=== PATIENT | male | born 1975 | race Caucasian/White ===

== ENCOUNTER 2022-09-16 13:24 | Outpatient (CLI) | payer OTHER, SELFPAY ==
--- NOTE | ~2022-09-16 | PE_ITS ---
EXAMINATION: PET_PETPSMAST_PT DATE: 09/16/2022 15:57 INDICATION: Malignant neoplasm of prostate. TECHNIQUE: 10.294 mCi of piflufolastat F-18 was administered intravenously. Low dose computed tomogra phy (CT) images were acquired from the base of the brain to the proximal thighs for attenuation corre ction and anatomic localization. Automated exposure control was employed. Dose-length product (DLP) w as 858 mGy-cm. Positron emission tomography (PET) images were acquired in the same distribution. COMPARISON: None FINDINGS: Head/neck: There are no pathologically enlarged lymph nodes. Chest: There is no pneumonia or pleural effusion. The heart size is normal. There are coronary artery calcifications. No pericardial effusion. There are no pathologically enlarged lymph nodes. Abdomen/pelvis/proximal thighs: There is diffuse hepatic steatosis. There is a 2.9 cm mass in left he patic lobe that is hyperdense to the steatotic liver with activity equal to normal liver, likely foca l fat sparing. There is mild splenomegaly. The pancreas and adrenal glands are normal. There is a 1 m m stone in right kidney. There is a 3 mm stone in left kidney. There are bilateral inguinal hernias containing fat. There are no dilated loops of bowel. The appendix is normal. There are no pathologica lly enlarged lymph nodes. There are normal-sized bilateral internal iliac nodes with increased activi ty. For example, an 8 x 5 mm right internal iliac node demonstrates maximum SUV of 17.8. There is no free intraperitoneal fluid. The prostate is mildly enlarged. There is increased activity in the prost ate predominantly involving the peripheral zone with maximum SUV of 31.8. There is no osseous metasta tic disease. IMPRESSION: 1. Mildly enlarged prostate with increased activity, consistent with primary malignancy. 2. Normal sized bilateral internal iliac lymph nodes with increased activity, consistent with metasta tic disease. Reviewed, dictated and finalized at location A. IMPRESSION: 1. Mildly enlarged prostate with increased activity, consistent with primary ma lignancy. 2. Normal sized bilateral internal iliac lymph nodes with increased activity, c onsistent with metastatic disease.
== END 2022-09-16 13:25 | disposition home or self-care (01) ==
PROVIDERS: Visit Provider Urology
DX: C61 Malignant neoplasm of prostate (principal)
CPT/HCPCS: 78815; A9595

== ENCOUNTER 2023-05-19 13:19 | Outpatient (CLI) | payer OTHER, SELFPAY ==
--- NOTE | ~2023-05-19 | DEXA_ITS ---
Bone Density Report Name: HAY WELCH Age: 47 Sex: Male Ethnicity: White Date of : 1975 Indication: height loss; cancer; Referring Provider: NICOLAS JESUS Study: Bone densitometry was performed. Exam Date: May 19, 2023 Accession number: [id number] Bone Density: Region BMD T-score Z-score Classification AP Spine(L1-L4) 1.029 -0.6 -0.2 Normal Femoral Neck (Left) 0.781 -1.1 -0.4 Osteopenia Total Hip (Left) 1.078 0.3 0.6 Normal Femoral Neck (Right) 0.798 -1.0 -0.2 Normal Total Hip (Right) 1.026 0.0 0.3 Normal Total Hip Mean 1.052 0.2 0.5 Normal World Health Organization criteria for BMD impression classify patients as: Normal (T-score at or above -1.0), Osteopenia (T-score between -1.0 and -2.5), or Osteoporosis (T-score at or below -2.5). 10-year Fracture Risk: FRAX not reported because: Man under age 50 Clinical Information Provided by Patient: Has used the following medications: Vitamin D Has the following medical conditions: Cancer Patient maximum height was 69 No regular weight bearing exercise Drinks caffeinated beverages Impression: The patient's bone mass is within expected range for age, gender and ethnicity. Discussion: BONE DENSITY IS WITHIN EXPECTED LIMITS FOR AGE, SEX AND RACE. Bone density is within expected limits for age, sex and race at all sites measured. The patient should follow a healthful lifestyle (good nutrition with adequate calcium and vitamin D, and appropriate weight-bearing exercise). Follow-Up: Consider repeating this study in 2 to 3 years to reassess this patient's status, or sooner if there is some new clinical indication. Reported by: PATRICIA on 05/19/2023 1:42:00 PM. Reviewed, dictated and finalized at location [facility]
== END 2023-05-19 13:20 | disposition home or self-care (01) ==
PROVIDERS: Visit Provider Urology
DX: M81.0 Age-related osteoporosis without current pathological fracture (principal); M85.852 Other specified disorders of bone density and structure, left thigh
CPT/HCPCS: 77080

== ENCOUNTER 2023-10-14 12:02 | Outpatient (CLI) | payer OTHER, SELFPAY ==
--- NOTE | ~2023-10-14 | CT_ITS ---
CT of the Abdomen and Pelvis: Indication: Prostate cancer Technique: 2.5 mm axial scans were obtained through the abdomen and pelvis following intravenous adm inistration of 100 cc of Omnipaque 350. Dose reduction technique was used on this scan by utilizing a utomated exposure control and iterative reconstruction technique. The dose-length product (DLP) was 1 078.89 mGy-cm. Findings: Scans through the lung bases are unremarkable. The liver, spleen, pancreas, gallbladder, adrenals and right kidney are within normal limits. 2 mm no nobstructing left renal stone present. There are atherosclerotic calcifications of the aorta. No lym phadenopathy. No bowel obstruction or bowel wall thickening. There is no evidence to suggest acute appendicitis. Images through the pelvis were performed. Urinary bladder unremarkable. There is mild dilatation of t he distal ureters bilaterally, nonspecific. Prostate gland fiducial markers present. No ascites. Impression: No CT evidence of metastatic disease. Prostate gland fiducial markers. 2 mm nonobstructing left renal stone. Reviewed, dictated and finalized at [facility]. Impression: No CT evidence of metastatic disease. Prostate gland fiducial markers. 2 mm nonobstructing left renal stone.
[2023-10-14 12:48] LABS: Estimated Glomerular Filt Rate > 60
== END 2023-10-14 12:03 | disposition home or self-care (01) ==
PROVIDERS: Visit Provider Urology
DX: C61 Malignant neoplasm of prostate (principal); N20.0 Calculus of kidney
CPT/HCPCS: 74177; Q9967

== ENCOUNTER 2023-10-26 07:10 | Outpatient (CLI) | payer OTHER, SELFPAY ==
--- NOTE | ~2023-10-26 | NM_ITS ---
EXAMINATION: NM bone scan whole body DATE: 10/26/2023 10:32 INDICATION: Malignant neoplasm of prostate. TECHNIQUE: 25.2 mCi Tc-99m HDP was administered intravenously. Delayed whole-body scintigrams were o btained. COMPARISON: CT abdomen and pelvis 10/14/2023 FINDINGS: There is no pattern of activity to suggest metastatic disease. IMPRESSION: 1. No evidence of metastatic disease. Reviewed, dictated and finalized at location A.
== END 2023-10-26 07:11 | disposition home or self-care (01) ==
PROVIDERS: Visit Provider Urology
DX: C61 Malignant neoplasm of prostate (principal)
CPT/HCPCS: 78306; A9503

== ENCOUNTER 2024-08-21 07:28 | Outpatient (CLI) | payer OTHER, SELFPAY ==
--- NOTE | ~2024-08-21 | NM_ITS ---
EXAMINATION: NM bone scan whole body DATE: 08/21/2024 11:09 INDICATION: Malignant neoplasm of the prostate TECHNIQUE: 24.6 mCi Tc-99m HDP was administered intravenously. Delayed whole-body scintigrams were o btained. COMPARISON: CT dated 10/14/2023 and bone scan dated 10/26/2023. Normal recent imaging available for [facility]. FINDINGS: Again seen is mild uptake at the bilateral L4-L5 facet joints where there is severe osteoarthritis ev ident on the prior CT. Additional likely degenerative joint centered uptake at the right acromioclavi cular and bilateral sternoclavicular joints and at the lateral right knee. There is a new focus of in creased uptake at the left side of the mandible. No other foci of new uptake to suggest osseous metas tatic disease. IMPRESSION: 1. Single new focus of increased uptake at the left mandible which would be an atypical location for metastatic disease more typical for dental disease. Could consider dental referral, plain radiographs or maxillofacial CT for further evaluation. Reviewed, dictated and finalized at location A. IMPRESSION: 1. Single new focus of increased uptake at the left mandible which would be an atypical location for metastatic disease more typical for dental disease. Could consider dental referral, plain radiographs or maxillofacial CT for further ev aluation.
== END 2024-08-21 07:29 | disposition home or self-care (01) ==
LOC: ANHIMG 07:36
PROVIDERS: PCP Hospitalist; Visit Provider Urology
DX: C61 Malignant neoplasm of prostate (principal)
CPT/HCPCS: 78306; A9503